=== PATIENT | female | born 1980 | race Caucasian/White ===

== ENCOUNTER → 2021-11-11 | Outpatient (CLI) | payer BC ==
--- NOTE | 2021-11-12 12:37 | MM ---
Reason for exam: screening (asymptomatic). Baseline mammogram. Physical Findings: A clinical breast exam by your physician is recommended on an annual basis and results should be correlated with mammographic findings. MG 3D Screening Mammo W/Cad Bilateral CC and MLO view(s) were taken. The breast tissue is heterogeneously dense. This may lower the sensitivity of mammography. There is no discrete abnormality. No significant changes when compared with prior studies. ASSESSMENT: Negative, BI-RAD 1 RECOMMENDATION: Routine screening mammogram of both breasts in 1 year.
== END | disposition home or self-care (01) ==
LOC: RADMAMWWP 15:50
PROVIDERS: ATTEND Obstetrics & Gynecology
DX: Z12.31 Encounter for screening mammogram for malignant neoplasm of breast (principal)
CPT/HCPCS: 77063; 77067

== ENCOUNTER → 2022-09-20 | Outpatient (CLI) | payer BC ==
--- NOTE | 2022-09-20 14:22 | CA ---
Exercise Stress Test Report Name: Chanell Donnelly Exam Date: 09/20/2022 09:09 Exam Location: [facility] Stress Ht (in): 66 Wt (lb): 195 BSA: 1.98 Ordering Phys: Kareem Upton MD Referring Phys: Tania Ni PAC Technologist: Shyam Amato Age: 41 Gender: F : 1980 Procedure CPT: Indications: R00.2 palpitations ICD-10 Codes: Patient History: Medications: LEXAPRO, ESCITALOPRAM, DOXEPIN, NUVARING, MELATONIN Meds past 24 hrs: Pretest Chest Pain: STRESS TEST Cameron Protocol Exercise Duration (min:sec): 11:[address] Depressions (mm): 0 Angina Score: 0 Fernandez Score: 11.1 Resting HR (bpm): 78 Peak HR (bpm): 185 Resting BP (mmHg): 134 / 96 Peak BP (mmHg): / 94 MPHR: 177 Target HR: 150 % MPHR: 105 METS: 12.1 Total Dose: Peak Dose: Atropine: Double Product: BP Response: Stress Termination: TARGET HR REACHED/MAX EXERTION Stress Symptoms: NO SYMPTOMS Stress Summary: ECG ANALYSIS Resting ECG: Sinus rhythm. Normal conduction. No arrhythmias. Normal repolarization. Stress ECG: No ECG evidence of ischemia with exercise. CONCLUSIONS Patient falls into low-risk group (DTS >= +5). This associates the patient with an annual CV mortality <= 0.5%. Normal ST segment response to stress. Dr. Francisco Tariq MD (Electronically Signed) Final Date: 20 September 2022 14:21
== END | disposition home or self-care (01) ==
LOC: RADNMMAIN 08:45
PROVIDERS: ATTEND Family Medicine
DX: R00.2 Palpitations (principal)
CPT/HCPCS: 93017

== ENCOUNTER → 2023-06-21 | Outpatient (CLI) | payer BC ==
--- NOTE | 2023-06-22 22:38 | MM ---
Reason for Exam: Screening (asymptomatic). Last mammogram was performed 1 year(s) and 7 month(s) ago. Patient History: Menarche at age 11. First Full-Term at age 26. Premenopausal. Risk Values: Raeann 5 year model risk: 0.9%. NCI Lifetime model risk: 10.7%. Prior Study Comparison: 11/11/2021 Bilateral Screening Mammogram, [facility]. Tissue Density: The breast tissue is heterogeneously dense. This may lower the sensitivity of mammography. Findings: Analyzed By CAD. Chronic nodularity on the right. There is no suspicious group of microcalcifications or new suspicious mass in either breast. Overall Assessment: Benign, BI-RAD 2 Management: Screening Mammogram of both breasts in 1 year. . Patient should continue monthly self-breast exams. A clinical breast exam by your physician is recommended on an annual basis. This exam should not preclude additional follow-up of suspicious palpable abnormalities. Note on Raeann scores and lifetime risk: 1. A Raeann score greater than 3% is considered moderate risk. If this is the case, consider specialist referral to assess eligibility for a risk reducing agent. 2. If overall lifetime risk for the development of breast cancer is 20% or higher, the patient may qualify for future screening with alternating mammogram and breast MRI. Electronically signed and approved by: Manuela Sheridan M.D. Radiologist
== END | disposition home or self-care (01) ==
LOC: RADMAMWWP 07:44
PROVIDERS: ATTEND Obstetrics & Gynecology
DX: Z12.31 Encounter for screening mammogram for malignant neoplasm of breast (principal)
CPT/HCPCS: 77063; 77067

== ENCOUNTER → 2024-01-22 | Outpatient (CLI) | payer BC ==
--- NOTE | 2024-03-09 12:55 | MR ---
EXAMINATION TYPE: MR foot RT wo con DATE OF EXAM: 01/22/2024 COMPARISON: NONE HISTORY: 43-year-old female with lateral sided right foot pain especially with weightbearing for the last 4 months. Right foot pain on lateral side kirill when weight bearing x 4 months, Pt doing stretches heard a pop in foot, Hx Rt heel plantar fasciitis, TECHNIQUE: Multiplanar, multisequence images of the right foot were obtained without IV contrast. FINDINGS: Tiny plantar heel spur. The medial origin of the plantar fascia is thickened up to 8 mm with adjacent edema, thickening, and some disorganized appearance. Laterally, there is also edema and some apparent deficiency of fibers. Findings suggest partial tear at the origin of the plantar fascia. Mild lateral and the dorsolateral soft tissue edema throughout the foot. The tibiotalar joint is intact. Suspect mild degenerative change particularly along the mid medial ta lar dome. Subtalar joint align. Small tibiotalar joint effusion. Slow delineation to the Achilles tendon. No acute or healing fracture is seen. Incidental bipartite tibial sesamoid. Small joint effusion firs t MTP joint. Mild to moderate tenosynovial fluid along the peroneus longus along the plantar and lateral aspect of the foot. The peroneus brevis insertion is intact. IMPRESSION: 1. Thickening at the origin of the plantar fascia up to 8 mm with edema and slight disorganized appea yadira. Underlying partial tear at the fascial origin is suggested. 2. Some lateral sided subcutaneous soft tissue swelling. Mild to moderate tenosynovitis along the lat eral and plantar course of the peroneus longus. 3. 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
== END | disposition home or self-care (01) ==
LOC: RADMRIMAIN 19:18
PROVIDERS: ATTEND Family Medicine
DX: M19.071 Primary osteoarthritis, right ankle and foot (principal); M65.871 Other synovitis and tenosynovitis, right ankle and foot; M79.671 Pain in right foot

== ENCOUNTER → 2024-10-10 | Outpatient (CLI) | payer BC ==
--- NOTE | 2024-10-10 12:50 | MM ---
Reason for Exam: Screening (asymptomatic). Last mammogram was performed 1 year(s) and 4 month(s) ago. Patient History: Menarche at age 11. First Full-Term at age 26. Premenopausal. Last menstrual period: 09/27/2024 Risk Values: Raeann 5 year model risk: 0.9%. NCI Lifetime model risk: 10.6%. Prior Study Comparison: 11/11/2021 Bilateral Screening Mammogram, [facility]. 06/21/2023 Bilateral MG 3D screening mammo w/cad, [facility]. Tissue Density: There are scattered areas of fibroglandular density. Findings: Analyzed By CAD. There is no suspicious group of microcalcifications or new suspicious mass in either breast. Overall Assessment: Negative, BI-RAD 1 Management: Screening Mammogram of both breasts in 1 year. Patient should continue monthly self-breast exams. A clinical breast exam by your physician is recommended on an annual basis. This exam should not preclude additional follow-up of suspicious palpable abnormalities. Note on Raeann scores and lifetime risk: 1. A Raeann score greater than 3% is considered moderate risk. If this is the case, consider specialist referral to assess eligibility for a risk reducing agent. 2. If overall lifetime risk for the development of breast cancer is 20% or higher, the patient may qualify for future screening with alternating mammogram and breast MRI. [facility], , 10/10/2024 12:35 PM. Electronically signed and approved by: Manuela Sheridan M.D. Radiologist
== END | disposition home or self-care (01) ==
LOC: RADMAMWWP 08:02
PROVIDERS: ATTEND Obstetrics & Gynecology
DX: Z12.31 Encounter for screening mammogram for malignant neoplasm of breast (principal); R92.323 Mammographic fibroglandular density, bilateral breasts
CPT/HCPCS: 77063; 77067